=== PATIENT | male | born 1980 | race Two or more races ===

== ENCOUNTER 2025-06-23 06:31 | Emergency (ER) | payer MEDICAID ==
[~2025-06-23] VITALS: Ht 170.2 cm; Wt 72.6 kg
[2025-06-23] MEDS ORDERED: NAPR-1164 PO (07:38)
[2025-06-23] MEDS ORDERED: dexaMETHasone SOD PHOSPHATE 1 ML ONE (07:39)
[2025-06-23] MEDS ORDERED: KETOROLAC TROMETHAMINE 15 MG/ML VIAL ONE (07:39)
[2025-06-23] MEDS: KETOROLAC TROMETHAMINE 15 MG/ML VIAL IM ONE (07:48)
[2025-06-23] MEDS: dexaMETHasone SOD PHOSPHATE 10 MG/ML VIAL IM ONE (07:48)
[2025-06-23 10:46] VITALS: BP 124/84; TEMP 98.1; O2SAT 98
== END 2025-06-23 10:46 | disposition home or self-care (01) ==
LOC: ER 06:36
DX: G57.21 Lesion of femoral nerve, right lower limb (principal); Z59.00 Homelessness unspecified
CPT/HCPCS: 99285; 96372; J1885; J1100